=== PATIENT | female | born 2000 | race Caucasian/White ===

== ENCOUNTER 2021-07-13 12:09 | Emergency (ER) | payer MEDICAID ==
[~2021-07-13] VITALS: Ht 160 cm; Wt 84.0 kg
[2021-07-13] MEDS ORDERED: FAMOTIDINE 20MG TABLET PO ONE (12:30)
[2021-07-13] MEDS ORDERED: DIPHENHYDRAMINE 50MG CAPSULE PO ONE (12:30)
[2021-07-13] MEDS ORDERED: PREDNISONE 20MG TABLET PO ONE (12:30)
[2021-07-13] MEDS ORDERED: FAMO-135 MT (12:51)
[2021-07-13] MEDS ORDERED: P50 MT (12:51)
[2021-07-13] MEDS ORDERED: DIPH25CA83 MT (12:51)
[2021-07-13 13:33] VITALS: BP 136/84
== END 2021-07-13 13:33 | disposition home or self-care (01) ==
LOC: ER 12:09
DX: L50.9 Urticaria, unspecified (principal); E11.9 Type 2 diabetes mellitus without complications
CPT/HCPCS: 81025; 99284; J7512; Q0163